=== PATIENT | female | born 1985 | race Caucasian/White ===

== ENCOUNTER 2017-04-24 20:56 | Emergency (ER) | payer OTHER ==
[~2017-04-24] VITALS: Ht 157.5 cm; Wt 67.8 kg
[~2017-04-24 20:56] MED LIST: DICL50TA3 PO; METH750T2 PO
[2017-04-24 20:59] VITALS: PULSE 88; RESP 20; TEMP 98.7; O2SAT 100
[2017-04-24] MEDS ORDERED: PROZ20CA11 PO (21:11)
[2017-04-24] MEDS ORDERED: MOBI15TA PO (21:28)
[2017-04-24] MEDS ORDERED: NORC5TAB PO (21:28)
[2017-04-24] MEDS ORDERED: ROBA750T PO (21:28)
--- NOTE | 2017-04-24 21:28 | PD ---
HPI Chief Complaint: Back/ Neck Pain or Injury Time Seen by Provider: 21:07 Travel History International Travel<30 days: No Contact w/Intl Traveler<30days: No Traveled to known affect area: No History of Present Illness HPI 32-year-old female complains of low back pain. Patient states the pain started this morning. Patient states that the pain is sharp pain aching pain localized to lower back area. Patient denies any pain radiation. Patient states the pain is worse with movement. Patient states that the pain started this morning got better and get worse again this evening after she was sitting on the floor. Patient denies any recent injury. Patient denies any headache. Patient denies any neck pain. Patient denies any chest pain or shortness of breath. Patient denies abdominal pain. Patient states that she has nausea but no vomiting or diarrhea. Patient denies any dysuria or frequency. Patient denies any vaginal discharge or bleeding. Patient denies any chance of being . On a scale of 1-10 the pain is a 10. PFSH Past Medical History ADHD: Yes Cancer: Yes (CERVICAL. ALSO HX HPV, ENDOMETRIOSIS) Diminished Hearing: No Reproductive: Yes (ENDOMETRIOSIS) Immunizations Current: Yes Thyroid Disease: Yes ("ADRENAL THYROID DISEASE" STATED 04/24/17) Influenza Vaccination: No ?: Not LMP: 05 15 17 : 3 Para: 2 Miscarriage: 1 : 0 Ovarian Cysts: Yes Tubal Ligation: Yes Past Surgical History Section: Yes (X2) Gynecologic Surgery: Yes (Endometriosis) Other Surgery: Yes (COLPOSCOPY X3 BREAST AUGMENTATION) Social History Alcohol Use: Yes ("Very rarely") Tobacco Use: No Substance Use: No Allergies-Medications (Allergen,Severity, Reaction): Coded Allergies: Latex (Verified Allergy, Severe, ITCHING, Hives, 04/24/17) Peanut (Verified Allergy, Severe, Hives, 04/24/17) Uncoded Allergies: CONTROL PILL (Allergy, Severe, Had seizures on OCPs, unknown which pill she was on., 09/03/14) Reported Meds & Prescriptions Reported Meds & Active Scripts Active Reported Prozac (Fluoxetine HCl) 20 Mg Cap 30 Mg PO DAILY Review of Systems General / Constitutional: No: Fever Eyes: No: Visual changes HENT: No: Headaches Cardiovascular: No: Chest Pain or Discomfort Respiratory: No: Shortness of Breath Gastrointestinal: No: Abdominal Pain Genitourinary: No: Dysuria Musculoskeletal: No: Pain Skin: No Rash Neurologic: No: Weakness Psychiatric: No: Depression Endocrine: No: Polydipsia Hematologic/Lymphatic: No: Easy Bruising Physical Exam Narrative GENERAL: Well-nourished, well-developed patient. SKIN: Focused skin assessment warm/dry. HEAD: Normocephalic. EYES: No scleral icterus. No injection or drainage. NECK: Supple, trachea midline. No JVD or lymphadenopathy. CARDIOVASCULAR: Regular rate and rhythm without murmurs, gallops, or rubs. RESPIRATORY: Breath sounds equal bilaterally. No accessory muscle use. GASTROINTESTINAL: Abdomen soft, non-tender, nondistended. MUSCULOSKELETAL: No cyanosis, or edema. BACK: Patient has moderate tenderness on palpation paraspinal area of the lumbar spine, especially right side, without obvious deformity. No CVA tenderness. The pain is worse with right leg straight leg raising. Neurologic exam normal. Data Data Last Documented VS Vital Signs Date Time Temp Pulse Resp B/P Pulse Ox O2 Delivery O2 Flow Rate FiO2 04/24/17 20:59 98.7 88 20 100 Orders Ketorolac Inj (Toradol Inj) (04/24/17 21:30) Dexamethasone Inj (Decadron Inj) (04/24/17 21:30) Spine, Lumbar - Ltd (Ap & Lat) (04/24/17 21:19) MDM Medical Decision Making Medical Screen Exam Complete: Yes Emergency Medical Condition: Yes Differential Diagnosis Differential diagnosis including strain, fracture, HNP. Narrative Course 32-year-old female complains of low back pain. Nontraumatic. Toradol 60 mg IM. Decadron 8 mg IM. Diagnosis Primary Impression: Lumbar strain Qualified Code: S39.012A - Lumbar strain, initial encounter Patient Instructions: General Instructions Additional Instructions: Take medication as needed for pain. Follow-up with personal physician and orthopedist if persistent problem. Return if worse. Med/Other Pt SpecificInfo: Prescription(s) given Scripts Hydrocodone-Acetaminophen ([place])5-325 mg Tab1 Tab PO Q6H PRN (PAIN) #20 TAB Ref 0 Prov:Eitan Mcclendon MD 04/24/17 Methocarbamol (Robaxin)750 Mg [id number] Mg PO QID #60 TAB Ref 0 Prov:Eitan Mcclendon MD 04/24/17 Meloxicam (Mobic)15 Mg Tab15 Mg PO DAILY #30 TAB Ref 0 Prov:Eitan Mcclendon MD 04/24/17 Disposition: 01 DISCHARGE HOME Condition: Stable Eitan Mcclendon MD Apr 24, 2017 21:28
[2017-04-24] MEDS ORDERED: KETOROLAC TROMETHAMINE 60 MG/2 ML (IM) VIAL IM ONE (21:30)
[2017-04-24] MEDS ORDERED: DEXAMETHASONE SOD PHOS 4 MG/ML VIAL IM ONE (21:30)
[2017-04-24 22:13] VITALS: BP 118/86
--- NOTE | 2017-04-24 22:22 | RADHPO ---
EXAM DATE/TIME: 04/24/2017 21:28 [facility] COMPARISON: No previous studies available for comparison. INDICATIONS : Lower back pain. Patient states she was sitting on the floor when she felt a sharp pain and was unabl e to get up. MEDICAL HISTORY : Scoliosis. SURGICAL HISTORY : None. ENCOUNTER: Initial ACUITY: 1 day PAIN SCORE: 10/10 LOCATION: lumbar spine. FINDINGS: There is normal alignment of vertebral bodies the lumbar spine in lateral projection and preservation of vertebral body height. In frontal projection, there is moderate curvature of the lumbar spine co nvex towards the right. Pedicles and transverse processes are intact. The arcuate lines of the sacr um are symmetric. CONCLUSION: Moderate scoliosis of the lumbar spine convex to the right. No evidence of compression deformity or spondylolisthesis. Arpit Le MD on April 24, 2017 at 22:20 Board Certified Radiologist. This report was verified electronically.
== END 2017-04-24 22:15 | disposition home or self-care (01) ==
LOC: PHED 20:56
DX: S39.012A Strain of muscle, fascia and tendon of lower back, initial encounter (principal)
CPT/HCPCS: 72100; 96372; 99284; J1100; J1885

== ENCOUNTER 2017-05-24 14:35 | Emergency (ER) | payer OTHER ==
[~2017-05-24] VITALS: Ht 157.5 cm; Wt 67.0 kg
[~2017-05-24 14:35] MED LIST changes: -DICL50TA3 PO; -METH750T2 PO; +MOBI15TA PO; +NORC5TAB PO; +PROZ20CA11 PO; +ROBA750T PO
[2017-05-24 14:37] VITALS: BP 124/82; PULSE 97; RESP 16; TEMP 98.3; O2SAT 99
[2017-05-24] MEDS ORDERED: SODIUM CHLOR 0.9% 1000 ML INJ 1,000 ML IV SCH (15:08)
--- NOTE | 2017-05-24 15:13 | PD ---
HPI Chief Complaint: Abdominal Pain Time Seen by Provider: 14:56 Travel History International Travel<30 days: No Contact w/Intl Traveler<30days: No Traveled to known affect area: No History of Present Illness HPI OVER LAST 2 DAYS WORSENING ABDOMINAL PAIN, CRAMPY, 05/31, ASSOC WITH NAUSEA BUT NO V/D/CP/CHEN/BACK PAIN TODAY. HAS H/O IBS BUT DENIES ANY GB OR APPY SURGERY PFSH Past Medical History Hx Anticoagulant Therapy: No ADHD: Yes Cancer: Yes (CERVICAL. ALSO HX HPV, ENDOMETRIOSIS) Diminished Hearing: No Reproductive: Yes (ENDOMETRIOSIS) Immunizations Current: Yes Thyroid Disease: Yes ("ADRENAL THYROID DISEASE" STATED 04/24/17) ?: Not : 3 Para: 2 Miscarriage: 1 : 0 Ovarian Cysts: Yes Tubal Ligation: Yes Past Surgical History Section: Yes (X2) Gynecologic Surgery: Yes (Endometriosis) Other Surgery: Yes (COLPOSCOPY X3 BREAST AUGMENTATION) Social History Alcohol Use: Yes ("Very rarely") Tobacco Use: No Substance Use: No Allergies-Medications (Allergen,Severity, Reaction): Coded Allergies: Latex (Verified Allergy, Severe, ITCHING, Hives, 05/24/17) Peanut (Verified Allergy, Severe, Hives, 05/24/17) Uncoded Allergies: CONTROL PILL (Allergy, Severe, Had seizures on OCPs, unknown which pill she was on., 09/03/14) Reported Meds & Prescriptions Reported Meds & Active Scripts Active Reported Prozac (Fluoxetine HCl) 20 Mg Cap 20 Mg PO DAILY Review of Systems Except as stated in HPI: all other systems reviewed are Neg Gastrointestinal: Positive: Nausea, Diarrhea, Abdominal Pain Physical Exam Narrative GENERAL: SKIN: Warm and dry. HEAD: Atraumatic. Normocephalic. EYES: Pupils equal and round. No scleral icterus. No injection or drainage. ENT: No nasal bleeding or discharge. Mucous membranes pink and moist. NECK: Trachea midline. No JVD. CARDIOVASCULAR: Regular rate and rhythm. RESPIRATORY: No accessory muscle use. Clear to auscultation. Breath sounds equal bilaterally. GASTROINTESTINAL: Abdomen soft, DIFFUSE MILD TT PALPATION, nondistended. MUSCULOSKELETAL: Extremities without clubbing, cyanosis, or edema. No obvious deformities. NEUROLOGICAL: Awake and alert. No obvious cranial nerve deficits. Motor grossly within normal limits. Five out of 5 muscle strength in the arms and legs. Normal speech. PSYCHIATRIC: Appropriate mood and affect; insight and judgment normal. Data Data Last Documented VS Vital Signs Date Time Temp Pulse Resp B/P Pulse Ox O2 Delivery O2 Flow Rate FiO2 05/24/17 16:21 84 16 134/79 98 Room Air 05/24/17 14:37 98.3 Orders Complete Blood Count With Diff (05/24/17 15:08) Comprehensive Metabolic Panel (05/24/17 15:08) Lipase (05/24/17 15:08) Prothrombin Time / Inr (Pt) (05/24/17 15:08) Act Partial Throm Time (Ptt) (05/24/17 15:08) Urinalysis - C+S If Indicated (05/24/17 15:08) Ct Abd/Pel W/O Iv Contrast (05/24/17 15:08) Iv Access Insert/Monitor (05/24/17 15:08) Ecg Monitoring (05/24/17 15:08) Oximetry (05/24/17 15:08) NPO (05/24/17 15:08) Ondansetron Inj (Zofran Inj) (05/24/17 15:15) Sodium Chlor 0.9% 1000 Ml Inj (Ns 1000 M (05/24/17 15:08) Ketorolac Inj (Toradol Inj) (05/24/17 15:15) Hydromorphone Pf Inj (Dilaudid Pf Inj) (05/24/17 15:15) Ed Urine Pregnancytest Poc (05/24/17 15:08) Labs Laboratory Tests Test 05/24/17 15:40 White Blood Count 4.3 TH/MM3 Red Blood Count 4.44 MIL/MM3 Hemoglobin 13.1 GM/DL Hematocrit 38.1 % Mean Corpuscular Volume 85.8 FL Mean Corpuscular Hemoglobin 29.6 PG Mean Corpuscular Hemoglobin 34.5 % Concent Red Cell Distribution Width 11.2 % Platelet Count 292 TH/MM3 Mean Platelet Volume 7.7 FL Neutrophils (%) (Auto) 55.2 % Lymphocytes (%) (Auto) 31.7 % Monocytes (%) (Auto) 10.6 % Eosinophils (%) (Auto) 1.6 % Basophils (%) (Auto) 0.9 % Neutrophils # (Auto) 2.3 TH/MM3 Lymphocytes # (Auto) 1.4 TH/MM3 Monocytes # (Auto) 0.5 TH/MM3 Eosinophils # (Auto) 0.1 TH/MM3 Basophils # (Auto) 0.0 TH/MM3 CBC Comment DIFF FINAL Differential Comment Prothrombin Time 10.6 SEC Prothromb Time International 1.0 RATIO Ratio Activated Partial 27.3 SEC Thromboplast Time Urine Color YELLOW Urine Turbidity HAZY Urine pH 6.0 Urine Specific [place] 1.030 Urine Protein TRACE mg/dL Urine Glucose (UA) NEG mg/dL Urine Ketones TRACE mg/dL Urine Occult Blood MOD Urine Nitrite NEG Urine Bilirubin NEG Urine Leukocyte Esterase NEG Urine RBC 0-3 /hpf Urine WBC 0-2 /hpf Urine Squamous Epithelial > 8 /hpf Cells Urine Calcium Oxalate Crystals MOD /hpf Urine Bacteria FEW /hpf Urine Mucus MOD /lpf Microscopic Urinalysis Comment CULT NOT INDICATED Sodium Level 142 MEQ/L Potassium Level 3.3 MEQ/L Chloride Level 105 MEQ/L Carbon Dioxide Level 27.1 MEQ/L Anion Gap 10 MEQ/L Blood Urea Nitrogen 12 MG/DL Creatinine 0.80 MG/DL Estimat Glomerular Filtration 84 ML/MIN Rate Random Glucose 97 MG/DL Calcium Level 8.0 MG/DL Total Bilirubin 0.2 MG/DL Aspartate Amino Transf 19 U/L (AST/SGOT) Alanine Aminotransferase 28 U/L (ALT/SGPT) Alkaline Phosphatase 104 U/L Total Protein 6.9 GM/DL Albumin 3.2 GM/DL Lipase 98 U/L [facility] Medical Decision Making Medical Screen Exam Complete: Yes Emergency Medical Condition: Yes Medical Record Reviewed: Yes Differential Diagnosis UTI V COLITIS V BILIARY COLIC V SBO V PERFORATION V IBS FLARE UP Narrative Course CURRENTLY PATIENT'S CT DOES NOT SHOW ANY E/O BILIARY COLIC/SBO/PERFORATION/ PERICOLONIC ABSCESS/ AT THIS POINT. CBC AND CMP ARE ALSO WNL AND NO E/O UTI ON UA. CONCLUSION IS IBS FLARE Diagnosis Primary Impression: IBS FLARE Scripts Tramadol (Ultram)50 Mg Tab50 Mg PO Q4H PRN (PAIN) #10 TAB Prov:Garcia Grant MD 05/24/17 Methylprednisolone Dosepak (Medrol Dosepak)4 Mg Dspk4 Mg PO DIRECTED #1 DSPK Per Pharmacist direction Prov:Garcia Grant MD 05/24/17 Disposition: 01 DISCHARGE HOME Condition: Stable Garcia Grant MD May 24, 2017 15:13
[2017-05-24] MEDS ORDERED: KETOROLAC TROMETHAMINE 30 MG/ML (IVP) VIAL IVP ONE (15:15)
[2017-05-24] MEDS ORDERED: ONDANSETRON HCL 4 MG/2 ML VIAL IVP ONE (15:15)
[2017-05-24] MEDS ORDERED: HYDROmorphone HCL PF 1 MG/ML VIAL IVS ONE (15:15)
[2017-05-24 15:46] VITALS: O2SAT 98
[2017-05-24 15:50] LABS: AUTOMATED NEUTROPHIL # 2.3 TH/MM3 (1.8-7.7); BASOPHIL % 0.9 % (0.0-2.0); EOSINOPHIL # 0.1 TH/MM3 (0-0.4); EOSINOPHIL % 1.6 % (0.0-4.0); HEMATOCRIT 38.1 % (35.0-46.0); HEMO FLAGS DIFF FINAL; LYMPH % 31.7 % (9.0-44.0); LYMPHOCYTE # 1.4 TH/MM3 (1.0-4.8); MEAN CELL VOLUME 85.8 FL (80.0-100.0); MEAN CORPUSCULAR HEMOGLOBIN 29.6 PG (27.0-34.0); MEAN CORPUSCULAR HGB CONC 34.5 % (32.0-36.0); MONO % 10.6 % (0.0-8.0); NEUT % 55.2 % (16.0-70.0); PLATELET COUNT 292 TH/MM3 (150-450); RED BLOOD COUNT 4.44 MIL/MM3 (4.00-5.30); RED CELL DISTRIBUTION WIDTH 11.2 % (11.6-17.2); WHITE BLOOD COUNT 4.3 TH/MM3 (4.0-11.0)
[2017-05-24 15:57] LABS: CHLORIDE 105 MEQ/L (98-107); GLUCOSE,URINE NEG (NEG); KETONE, URINE TRACE mg/dL (NEG); NITRITE,URINE NEG (NEG); POTASSIUM 3.3 MEQ/L (3.5-5.1); SODIUM (NA) 142 MEQ/L (136-145)
[2017-05-24 16:00] LABS: BLOOD, URINE MOD (NEG)
[2017-05-24 16:01] LABS: ANION GAP 10 MEQ/L (5-15); BICARBONATE 27.1 MEQ/L (21.0-32.0); BLOOD UREA NITROGEN 12 MG/DL (7-18)
[2017-05-24 16:02] LABS: APTT (PATIENT) 27.3 SEC (24.3-30.1); PROTHROMBIN TIME - PATIENT 10.6 SEC (9.8-11.6)
[2017-05-24 16:04] LABS: ALT (GPT) 28 U/L (10-53); AST (GOT) 19 U/L (15-37); GLOMERULAR FILTRATION RATE 84 ML/MIN (>89)
[2017-05-24 16:05] LABS: TOTAL BILIRUBIN ADULT 0.2 MG/DL (0.2-1.0)
[2017-05-24 16:06] LABS: URINE COLOR YELLOW (YELLW/STRAW)
[2017-05-24 16:07] LABS: ALKALINE PHOSPHATASE 104 U/L (45-117); RBC, URINE 0-3 /hpf (0-3); SQUAMOUS EPITHELIAL CELL URINE > 8 /hpf (0-5); WBC, URINE 0-2 /hpf (0-5)
[2017-05-24 16:08] LABS: BACTERIA, URINE FEW /hpf; CALCIUM OXALATE CRYSTALS,URINE MOD /hpf; COMMENT (UR) CULT NOT INDICATED; CULTURE IF INDICATED CULT NOT INDICATED; MUCUS URINE MOD /lpf (OCC)
[2017-05-24 16:21] VITALS: BP 134/79; PULSE 84; RESP 16; O2SAT 98
--- NOTE | 2017-05-24 16:21 | RADRPT ---
EXAM DATE/TIME: 05/24/2017 15:59 [facility] COMPARISON: CT ABDOMEN & PELVIS W/O CONTRAST, March 15, 2014, 21:19. INDICATIONS : Upper abdominal pain. ORAL CONTRAST: No oral contrast ingested. RADIATION DOSE: 9.16 CTDIvol (mGy) MEDICAL HISTORY : Endometriosis. SURGICAL HISTORY : Tubal ligation. section. ENCOUNTER: Initial ACUITY: 3 days PAIN SCALE: 7/10 LOCATION: upper quadrant TECHNIQUE: Volumetric scanning of the abdomen and pelvis was performed. Using automated exposure control and ad justment of the mA and/or kV according to patient size, radiation dose was kept as low as reasonably achievable to obtain optimal diagnostic quality images. DICOM format image data is available electro nically for review and comparison. The lack of IV contrast limits the diagnosis for certain organ pa thology. FINDINGS: LOWER LUNGS: The visualized lower lungs are clear. LIVER: Homogeneous density without lesion. There is no dilation of the biliary tree. No calcified gallston es. SPLEEN: Normal size without lesion. PANCREAS: Within normal limits. KIDNEYS: Normal in size and shape. There is no mass, stone, or hydronephrosis. ADRENAL GLANDS: Within normal limits. VASCULAR: There is no aortic aneurysm. BOWEL/MESENTERY: The stomach, small bowel, and colon demonstrate no acute abnormality. There is no free intraperitone al air or fluid. No inflammatory changes. ABDOMINAL WALL: Within normal limits. RETROPERITONEUM: There is no lymphadenopathy. BLADDER: No wall thickening or mass. REPRODUCTIVE: Within normal limits. INGUINAL: There is no lymphadenopathy or hernia. MUSCULOSKELETAL: Within normal limits for patient age. No significant change compared to 2013. CONCLUSION: Unremarkable and stable exam compared to 2013. Minh Baird MD on May 24, 2017 at 16:16 Board Certified Radiologist. This report was verified electronically.
[2017-05-24] MEDS ORDERED: ULTR50TA5 PO ×4 (16:56→17:20)
[2017-05-24] MEDS ORDERED: MEDR4PAK PO ×4 (16:56→17:20)
== END 2017-05-24 17:32 | disposition home or self-care (01) ==
LOC: PHED 14:35
DX: K58.9 Irritable bowel syndrome, unspecified (principal)
CPT/HCPCS: 74176; 80053; 81001; 83690; 84703; 85025; 85610; 85730; 96361; 96374; 96375; 99285; J1170; J1885; J2405; J7030

== ENCOUNTER 2017-06-02 12:52 | Emergency (ER) | payer OTHER ==
[~2017-06-02] VITALS: Ht 157.5 cm; Wt 67.6 kg
[~2017-06-02 12:52] MED LIST changes: -MOBI15TA PO; -NORC5TAB PO; -ROBA750T PO
[2017-06-02 13:00] VITALS: BP 133/78; PULSE 86; RESP 16; TEMP 98.3; O2SAT 99
--- NOTE | 2017-06-02 13:25 | PD ---
HPI Chief Complaint: Pain: Acute or Chronic Time Seen by Provider: 13:08 Travel History International Travel<30 days: No Contact w/Intl Traveler<30days: No Traveled to known affect area: No History of Present Illness HPI S/P FALL FROM TRIP OVER HER DOGS, LANDED ON RIGHT FLANK AREA, WAS IMPROVING BUT THEN TODAY WHILE AT WORK TOOK A DEEP BREATH FELT/HEARD A POP AND HAS HAD INCREASED PAIN SINCE THEN... DESCRIBED SHARP, NONRAD, 05/31, WORSENED BY MOVEMENT, IMPROVED BY "LAYING STILL" PFSH Past Medical History Hx Anticoagulant Therapy: No ADHD: Yes Cancer: Yes (CERVICAL. ALSO HX HPV, ENDOMETRIOSIS) Diabetes: No Diminished Hearing: No Reproductive: Yes (ENDOMETRIOSIS) Immunizations Current: Yes Thyroid Disease: Yes ("ADRENAL THYROID DISEASE" STATED 04/24/17) Influenza Vaccination: No ?: Not : 3 Para: 2 Miscarriage: 1 : 0 Ovarian Cysts: Yes Tubal Ligation: Yes Past Surgical History Section: Yes (X2) Gynecologic Surgery: Yes (Endometriosis) Other Surgery: Yes (COLPOSCOPY X3, BREAST AUGMENTATION) Social History Alcohol Use: Yes ("Very rarely") Tobacco Use: No (NEVER) Substance Use: No Allergies-Medications (Allergen,Severity, Reaction): Coded Allergies: Latex (Verified Allergy, Severe, ITCHING, Hives, 06/02/17) Peanut (Verified Allergy, Severe, Hives, 06/02/17) Uncoded Allergies: CONTROL PILL (Allergy, Severe, Had seizures on OCPs, unknown which pill she was on., 09/03/14) Reported Meds & Prescriptions Reported Meds & Active Scripts Active Codeine-Acetaminophen 30-300 mg Tab 1 Tab PO Q4H PRN Flexeril (Cyclobenzaprine HCl) 10 Mg Tab 10 Mg PO TID Reported Prozac (Fluoxetine HCl) 20 Mg Cap 20 Mg PO DAILY Review of Systems Except as stated in HPI: all other systems reviewed are Neg Musculoskeletal: Positive: Limited ROM, Pain Physical Exam Narrative GENERAL: SKIN: Warm and dry. HEAD: Atraumatic. Normocephalic. EYES: Pupils equal and round. No scleral icterus. No injection or drainage. ENT: No nasal bleeding or discharge. Mucous membranes pink and moist. NECK: Trachea midline. No JVD. CARDIOVASCULAR: Regular rate and rhythm. RESPIRATORY: No accessory muscle use. Clear to auscultation. Breath sounds equal bilaterally. GASTROINTESTINAL: Abdomen soft, non-tender, nondistended. Hepatic and splenic margins not palpable. MUSCULOSKELETAL: Extremities without clubbing, cyanosis, or edema. No obvious deformities. NO CREPITUS BUT REPRODUCIBLE PAIN ON PALPATION ALONG POST AXILLARY LINE ON FLANK, PT ALSO HAS RESOLVING ECHYMOSIS ALONG RIGHT SACRAL WING REGION ( PT IS AMBULATORY WITHOUT DIFFICULTY) NEUROLOGICAL: Awake and alert. No obvious cranial nerve deficits. Motor grossly within normal limits. Five out of 5 muscle strength in the arms and legs. Normal speech. PSYCHIATRIC: Appropriate mood and affect; insight and judgment normal. Data Data Last Documented VS Vital Signs Date Time Temp Pulse Resp B/P Pulse Ox O2 Delivery O2 Flow Rate FiO2 06/02/17 13:00 98.3 86 16 133/78 99 Orders Ed Urine Pregnancytest Poc (06/02/17 13:08) Ribs, Uni (W/Exp Cxr-Min 3vw) (06/02/17 ) Orphenadrine Inj (Norflex Inj) (06/02/17 15:00) Ketorolac Inj (Toradol Inj) (06/02/17 15:00) MDM Medical Decision Making Medical Screen Exam Complete: Yes Emergency Medical Condition: Yes Medical Record Reviewed: Yes Differential Diagnosis PTX V RIB FX V CHEST WALL CONTUSION Narrative Course PATIENT ACCIDENTALLY TRIPPED BY HER DOGS, NEG PREG IN DEPT, RIB SERIES CXR NEG FOR FX/PTX....PT IS IMPROVED AFTER IM PAIN MED Diagnosis Primary Impression: CHEST WALL CONTUSION Patient Instructions: Chest Wall Pain (ED), General Instructions, Return to Work Instructions (DC) Scripts Codeine-Acetaminophen 30-300 mg Tab1 Tab PO Q4H PRN (PAIN) #20 TAB Prov:Garcia Grant MD 06/02/17 Cyclobenzaprine (Flexeril)10 Mg Tab10 Mg PO TID #21 TAB Prov:Garcia Grant MD 06/02/17 Disposition: 01 DISCHARGE HOME Condition: Stable Garcia Grant MD Jun 02, 2017 13:25
--- NOTE | 2017-06-02 13:50 | RADRPT ---
EXAM DATE/TIME: 06/02/2017 13:22 [facility] COMPARISON: RIBS RIGHT(W PA CXR MIN 3VWS), July 02, 2016, 21:00. INDICATIONS : Right side rib pain after falling MEDICAL HISTORY : Previous broken ribs SURGICAL HISTORY : None. ENCOUNTER: Initial ACUITY: 3 days PAIN SCORE: 10/10 LOCATION: Right lateral Lower ribs FINDINGS: No definite displaced rib fractures or pneumothorax is identified. CONCLUSION: No definite displaced rib fractures. Sanju Hall MD on June 02, 2017 at 13:47 Board Certified Radiologist. This report was verified electronically.
[2017-06-02] MEDS ORDERED: CYCL1TAB29 PO (14:57)
[2017-06-02] MEDS ORDERED: CODE30TA2 PO (14:57)
[2017-06-02] MEDS ORDERED: KETOROLAC TROMETHAMINE 60 MG/2 ML (IM) VIAL IM ONE (15:00)
[2017-06-02] MEDS ORDERED: ORPHENADRINE INJ 60 MG/2 ML AMP IM ONE (15:00)
== END 2017-06-02 15:29 | disposition home or self-care (01) ==
LOC: PHED 12:52
DX: S20.219A Contusion of unspecified front wall of thorax, initial encounter (principal); W01.0XXA Fall on same level from slipping, tripping and stumbling without subsequent striking against object, initial encounter
CPT/HCPCS: 71101; 84703; 96372; 99284; J1885; J2360

== ENCOUNTER 2018-01-17 08:22 | Emergency (ER) | payer OTHER ==
[~2018-01-17] VITALS: Ht 157.5 cm; Wt 73.0 kg
[~2018-01-17 08:22] MED LIST changes: +CODE30TA2 PO; +CYCL10TA PO
[2018-01-17 08:25] VITALS: BP 127/92; PULSE 102; RESP 20; TEMP 98.4; O2SAT 96
[2018-01-17] MEDS ORDERED: VENTAER INH (08:50)
--- NOTE | 2018-01-17 09:06 | PD ---
HPI Chief Complaint: Cold / Flu Symptoms Time Seen by Provider: 08:55 Travel History International Travel<30 days: No Contact w/Intl Traveler<30days: No Traveled to known affect area: No History of Present Illness HPI This 32-year-old female says she has been congested since last Wednesday. She does have a history of fairly bad allergies and thought it might be allergies. She has had aching all over. She works at a intermediate. She went to urgent care on Wednesday and was given prescription for albuterol inhaler which has not been helping her much. She has been quite congested. She is coughing up some clear phlegm. she is not aware of fever PFSH Past Medical History Hx Anticoagulant Therapy: No ADHD: Yes Cancer: Yes (CERVICAL. ALSO HX HPV, ENDOMETRIOSIS) Diabetes: No Diminished Hearing: No Reproductive: Yes (ENDOMETRIOSIS) Immunizations Current: Yes Thyroid Disease: Yes ("ADRENAL THYROID DISEASE" STATED 04/24/17) ?: Not LMP: 12/06/17 : 3 Para: 2 Miscarriage: 1 : 0 Ovarian Cysts: Yes Tubal Ligation: Yes Past Surgical History Section: Yes (X2) Gynecologic Surgery: Yes (Endometriosis) Other Surgery: Yes (COLPOSCOPY X3, BREAST AUGMENTATION) Social History Alcohol Use: Yes ("Very rarely") Tobacco Use: No (NEVER) Substance Use: No Allergies-Medications (Allergen,Severity, Reaction): Coded Allergies: ipratropium (Unverified Allergy, Severe, Hives, 01/17/18) latex (Unverified Allergy, Severe, ITCHING, Hives, 01/17/18) Uncoded Allergies: CONTROL PILL (Allergy, Severe, Had seizures on OCPs, unknown which pill she was on., 09/03/14) Reported Meds & Prescriptions Reported Meds & Active Scripts Active Reported Ventolin Hfa 18 GM Inh (Albuterol Sulfate) 90 Mcg/Act Aer 2 Puff INH Q4H PRN Review of Systems General / Constitutional: No: Fever, Chills Eyes: No: Diploplia, Blurred Vision HENT: Positive: Sore Throat, Rhinitis Cardiovascular: No: Chest Pain or Discomfort Respiratory: Positive: Cough Gastrointestinal: Positive: Nausea, No: Vomiting Genitourinary: No: Urgency, Frequency Musculoskeletal: No: Myalgias Skin: No Rash, No Itching Neurologic: No: Weakness, Dizziness Endocrine: No: Heat Intolerance, Cold Intolerance Hematologic/Lymphatic: No: Easy Bruising Physical Exam Narrative GENERAL: Well-developed female SKIN: Focused skin assessment warm/dry. HEAD: Atraumatic. Normocephalic. EYES: Pupils equal and round. No scleral icterus. No injection or drainage. ENT: No nasal bleeding or discharge. Mucous membranes pink and moist. NECK: Trachea midline. No JVD. CARDIOVASCULAR: Regular rate and rhythm. No murmur appreciated. RESPIRATORY: No accessory muscle use. Clear to auscultation. Breath sounds equal bilaterally. GASTROINTESTINAL: Abdomen soft, non-tender, nondistended. Hepatic and splenic margins not palpable. MUSCULOSKELETAL: No obvious deformities. No clubbing. No cyanosis. No edema. NEUROLOGICAL: Awake and alert. No obvious cranial nerve deficits. Motor grossly within normal limits. Normal speech. PSYCHIATRIC: Appropriate mood and affect; insight and judgment normal. Data Data Last Documented VS Vital Signs Date Time Temp Pulse Resp B/P (MAP) Pulse Ox O2 Delivery O2 Flow Rate FiO2 01/17/18 08:25 98.4 102 20 127/92 (104) 96 Orders Orders Influenzae A/B Antigen (01/17/18 09:02) Ed Discharge Order (01/17/18 09:58) MDM Medical Decision Making Medical Screen Exam Complete: Yes Emergency Medical Condition: Yes Medical Record Reviewed: Yes Differential Diagnosis Differential includes pneumonia, influenza, viral syndrome Narrative Course Patient's exam consistent with pneumonia. Her test for influenza is negative. I believe this is a viral illness Diagnosis Primary Impression: Viral illness Disposition: 01 DISCHARGE HOME Condition: Stable Hemant Caballero MD Jan 17, 2018 09:06
== END 2018-01-17 10:10 | disposition home or self-care (01) ==
LOC: PHED 08:22
DX: B34.9 Viral infection, unspecified (principal)
CPT/HCPCS: 87804; 99283

== ENCOUNTER 2018-01-29 23:50 | Emergency (ER) | payer OTHER ==
[~2018-01-29] VITALS: Ht 157.5 cm; Wt 72.8 kg
[~2018-01-29 23:50] MED LIST changes: -CODE30TA2 PO; -CYCL10TA PO; -PROZ20CA11 PO; +VENTAER INH
[2018-01-29 23:57] VITALS: BP 152/80; PULSE 116; RESP 18; TEMP 97.6; O2SAT 97
[2018-01-30 02:30] VITALS: BP 142/77; PULSE 98; RESP 16; TEMP 98; O2SAT 98
[2018-01-30] MEDS ORDERED: ONDANSETRON ODT 4 MG TAB PO ONE ×2 (03:15→03:45)
--- NOTE | 2018-01-30 03:42 | RADRPT ---
EXAM DATE/TIME: 01/30/2018 03:28 [facility] COMPARISON: No previous studies available for comparison. INDICATIONS : Entire right ankle pain post fall. MEDICAL HISTORY : Endometriosis SURGICAL HISTORY : Tubal ligation. section. ENCOUNTER: Initial ACUITY: 1 day PAIN SCORE: 10/10 LOCATION: Right ankle FINDINGS: There is lateral soft tissue swelling. There is a probable small, nondisplaced avulsion fracture frag ment off of the lateral aspect of the talus, most likely involving the distal ATF attachment and coul d be acute. No other fractures are demonstrated. There no subluxations. CONCLUSION: Small avulsion fracture fragment laterally of the talus. There is soft tissue swelling, mostly latera l. Thad Paul MD on January 30, 2018 at 3:39 Board Certified Radiologist. This report was verified electronically.
[2018-01-30] MEDS ORDERED: IBUPROFEN 800 MG TAB PO ONE (03:45)
[2018-01-30] MEDS ORDERED: ZOFR4TAB3 SL (03:54)
[2018-01-30] MEDS ORDERED: PERC5TAB12 PO (03:54)
--- NOTE | 2018-01-30 03:56 | PD ---
HPI Chief Complaint: Injury Time Seen by Provider: 03:06 Travel History International Travel<30 days: No Contact w/Intl Traveler<30days: No Traveled to known affect area: No History of Present Illness HPI 32-year-old female with a twisting injury to the right ankle at 6:30 PM on Wednesday evening. Patient denies other injury. Patient did not hit her head have loss of consciousness injure her neck back chest abdomen pelvis or other extremities. Patient states she heard a pop when she injured her ankle. Subsequently she has had increasing pain to the right ankle and is concerned that she may have sustained a fracture. Patient denies other concerns or complaints. Patient takes no blood thinning agents. Patient rates her pain as severe. PFSH Past Medical History Narrative Medical Cervical cancer endometriosis; occasional alcohol use; nursing notes reviewed Hx Anticoagulant Therapy: No ADHD: Yes Cancer: Yes (CERVICAL. ALSO HX HPV, ENDOMETRIOSIS) Diabetes: No Diminished Hearing: No Reproductive: Yes (ENDOMETRIOSIS) Immunizations Current: Yes Thyroid Disease: Yes ("ADRENAL THYROID DISEASE" STATED 04/24/17) Tetanus Vaccination: < 5 Years ?: Not LMP: 01/22/18 : 3 Para: 2 Miscarriage: 1 : 0 Ovarian Cysts: Yes Tubal Ligation: Yes Past Surgical History Section: Yes (X2) Gynecologic Surgery: Yes (Endometriosis) Other Surgery: Yes (COLPOSCOPY X3, BREAST AUGMENTATION) Social History Alcohol Use: Yes ("Very rarely") Tobacco Use: No (NEVER) Substance Use: No Allergies-Medications (Allergen,Severity, Reaction): Coded Allergies: ipratropium (Verified Allergy, Severe, Hives, 01/30/18) latex (Verified Allergy, Severe, ITCHING, Hives, 01/30/18) Uncoded Allergies: CONTROL PILL (Allergy, Severe, Had seizures on OCPs, unknown which pill she was on., 09/03/14) Reported Meds & Prescriptions Reported Meds & Active Scripts Active Zofran Odt (Ondansetron Odt) 4 Mg Tab 4 Mg SL Q6HR PRN Percocet (Oxycodone-Acetaminophen) 5-325 mg Tab 1 Tab PO Q6H PRN Reported Ventolin Hfa 18 GM Inh (Albuterol Sulfate) 90 Mcg/Act Aer 2 Puff INH Q4H PRN Review of Systems Except as stated in HPI: all other systems reviewed are Neg Physical Exam Narrative GENERAL: Well-developed well-nourished female in obvious disc SKIN: Warm and dry. HEAD: Normocephalic. EYES: No scleral icterus. No injection or drainage. NECK: Supple, trachea midline. No JVD or lymphadenopathy. MUSCULOSKELETAL: No cyanosis, or edema. Attention right lower extremity right ankle with lateral malleolar soft tissue swelling decreased range of motion secondary to pain no deformity; dorsalis pedis pulse 2+ to palpation; capillary refill brisk and less than 2 seconds per digit BACK: Nontender without obvious deformity. No CVA tenderness. Data Data Last Documented VS Vital Signs Date Time Temp Pulse Resp B/P (MAP) Pulse Ox O2 Delivery O2 Flow Rate FiO2 01/30/18 05:45 97.8 96 18 153/86 (108) 97 01/30/18 04:30 Room Air Orders Orders Ankle, Complete ([id number]) (01/30/18 ) Ondansetron Odt (Zofran Odt) (01/30/18 03:45) Ibuprofen (Motrin) (01/30/18 03:45) Splint Or Brace Apply/Monitor (01/30/18 03:50) Ed Discharge Order (01/30/18 03:50) Crutches (01/30/18 03:50) Fiberglass Short Leg Splint Ad (01/30/18 ) Fiberglass Sugartong Sp Ad Sl (01/30/18 ) MDM Medical Decision Making Medical Screen Exam Complete: Yes Emergency Medical Condition: Yes Medical Record Reviewed: Yes Interpretation(s) r ankle xr: LOCATION: Right ankle FINDINGS: There is lateral soft tissue swelling. There is a probable small, nondisplaced avulsion fracture fragment off of the lateral aspect of the talus, most likely involving the distal ATF attachment and could be acute. No other fractures are demonstrated. There no subluxations. CONCLUSION: Small avulsion fracture fragment laterally of the talus. There is soft tissue swelling, mostly lateral. Thad Paul MD on January 30, 2018 at 3:39 Board Certified Radiologist. This report was verified electronically. Differential Diagnosis Sprain strain subluxation fracture Narrative Course Imaging study ordered Imaging study consistent with avulsion fracture; splint applied; crutches ordered; medication given Patient is stable for outpatient management and follow-up with orthopedist Diagnosis Primary Impression: Ankle fracture Qualified Codes: S82.891A - Other fracture of right lower leg, initial encounter for closed fracture Referrals: Orthopedist call for appointment regional extension service specialist orthopedist: Dr Werner Patient Instructions: General Instructions Additional Instructions: wear splint Follow-up with orthopedic surgeon Elevate foot Use crutches to assist ambulation Take pain medication as prescribed as needed Return to the emergency department for any concerns or change in condition Med/Other Pt SpecificInfo: Prescription(s) given Scripts Ondansetron Odt (Zofran Odt) 4 Mg Tab 4 MG SL Q6HR Y for Nausea/Vomiting, #10 TAB 0 Refills Prov: Kayce Love MD 01/30/18 Oxycodone-Acetaminophen (Percocet) 5-325 mg Tab 1 TAB PO Q6H Y for PAIN, #10 TAB 0 Refills Prov: Kayce Love MD 01/30/18 Disposition: 01 DISCHARGE HOME Condition: Stable Kayce Love MD Jan 30, 2018 03:56
[2018-01-30 04:30] VITALS: BP 140/88; PULSE 95; RESP 18; O2SAT 98
[2018-01-30 05:45] VITALS: BP 153/86; TEMP 97.8
== END 2018-01-30 05:47 | disposition home or self-care (01) ==
LOC: PHED 23:50
DX: S92.154A Nondisplaced avulsion fracture (chip fracture) of right talus, initial encounter for closed fracture (principal); E07.9 Disorder of thyroid, unspecified; Z86.59 Personal history of other mental and behavioral disorders; Z87.42 Personal history of other diseases of the female genital tract; Z85.41 Personal history of malignant neoplasm of cervix uteri; X50.1XXA Overexertion from prolonged static or awkward postures, initial encounter
CPT/HCPCS: 29515; 73610; 99283; E0113